=== PATIENT | male | born 1960 | race African-American/Black ===

== ENCOUNTER 2025-02-21 15:00 | Emergency (ER) | payer MEDICARE, MEDICAID ==
[~2025-02-21] VITALS: Ht 185.4 cm; Wt 123.0 kg
[2025-02-21 15:03] VITALS: TEMP 37.2; O2SAT 97
[2025-02-21] MEDS ORDERED: IBUP-2029 MT (17:10)
[2025-02-21 17:26] VITALS: BP 145/86; PULSE 93; RESP 16; O2SAT 98
== END 2025-02-21 17:27 | disposition home or self-care (01) ==
LOC: ER 15:00
DX: M25.562 Pain in left knee (principal); E11.9 Type 2 diabetes mellitus without complications; E78.00 Pure hypercholesterolemia, unspecified; I10 Essential (primary) hypertension; Z79.899 Other long term (current) drug therapy
CPT/HCPCS: 99283; 73562; L1830